=== PATIENT | male | born 1945 | race Caucasian/White ===

== ENCOUNTER → 2023-09-10 07:43 | Outpatient (REF) | payer MEDICARE, OTHER, SELFPAY ==
[2023-09-10 09:05] LABS: % Basophils 0.7 % (0-2); % Eosinophils 2.5 % (0-6); % Immature Granulocytes 0.3 % (0-0.5); % Lymphocytes 26.3 % (20.5-51.1); % Monocytes 8.7 % (1.7-9.3); % Neutrophils 61.5 % (42.2-75.2); Absolute Basophils 0.1 10^3/uL (0-0.2); Absolute Eosinophils 0.2 10^3/uL (0-0.7); Absolute Lymphocytes 1.8 10^3/uL (1.2-3.4); Absolute Monocytes 0.6 10^3/uL (0.1-0.6); Absolute Neutrophils 4.2 10^3/uL (1.4-6.5); Hematocrit 41.2 % (39.0-52.0); Hemoglobin 13.9 g/dL (13.0-18.0); Mean Corp Hgb Conc. 33.7 g/dL (33.0-37.0); Mean Corpuscular Hgb 30.2 pg (27.0-31.0); Mean Corpuscular Volume 89.6 fL (80.0-94.0); Mean Platelet Volume 9.9 fL (7.4-10.4); Nucleated Red Blood Cells % 0 % (-); Platelet Count 226 10^3/uL (130-400); Red Cell Dist. Width 14.7 % (11.5-14.5); White Blood Cell Count 6.8 10^3/uL (4.8-10.8)
[2023-09-10 09:31] LABS: ALT (SGPT) 23 U/L (0-50); AST (SGOT) 24 U/L (17-59); Albumin 4.5 g/dl (3.5-5.0); Alkaline Phosphatase 57 U/L (38-126); Blood Urea Nitrogen 18 mg/dl (9-20); Calcium 9.7 mg/dl (8.4-10.2); Carbon Dioxide 23 mmol/L (22-30); Chloride 105 mmol/L (98-107); Glucose 105 mg/dl (70-99); HDL Cholesterol 67 mg/dl; LDH 155 U/L (120-246); LDL Cholesterol, Calculated 26 mg/dl; Potassium 4.3 mmol/L (3.5-5.1); Sodium 134 mmol/L (135-145); Total Bilirubin 0.8 mg/dl (0.2-1.3); Total Cholesterol 117 mg/dl (50-199); Triglyceride 123 mg/dl (10-149); Very Low Density Lipoprotein 24 mg/dl (0-30); eGFR > 60.00
[2023-09-10 09:46] LABS: Vitamin D, 25-OH*** 44.2 ng/mL (30-80)
[2023-09-11 11:02] LABS: PSA Total 4.7 ng/mL (0.0-4.0)
== END ==
LOC: REG 07:43
PROVIDERS: ATTENDING PHYSICIAN Family Medicine
DX: E78.5 Hyperlipidemia, unspecified (principal); E55.9 Vitamin D deficiency, unspecified; R73.03 Prediabetes; R97.20 Elevated prostate specific antigen [PSA]
CPT/HCPCS: 36415; 80053; 80061; 82306; 83036; 83615; 84153; 84154; 85025

== ENCOUNTER → 2023-12-12 10:12 | Outpatient (REF) | payer MEDICARE, OTHER, SELFPAY | LOC: PAVMRI 10:12 | PROVIDERS: ATTENDING PHYSICIAN Orthopaedic Surgery; FAMILY PHYSICIAN Family Medicine | DX: M25.561 Pain in right knee (principal) | CPT/HCPCS: 73721 ==

== ENCOUNTER → 2024-02-26 09:19 | Outpatient (REF) | payer MEDICARE, OTHER, SELFPAY | LOC: REG 09:19 | PROVIDERS: ATTENDING PHYSICIAN Specialist; FAMILY PHYSICIAN Family Medicine | DX: R97.20 Elevated prostate specific antigen [PSA] (principal) | CPT/HCPCS: 36415; 84153; 84154 ==

== ENCOUNTER → 2024-09-05 10:24 | Outpatient (REF) | payer MEDICARE, OTHER, SELFPAY | LOC: REG 10:24 | PROVIDERS: ATTENDING PHYSICIAN Family Medicine | DX: Z20.9 Contact with and (suspected) exposure to unspecified communicable disease (principal) | CPT/HCPCS: 36415; 86765 ==

== ENCOUNTER → 2024-10-08 07:35 | Outpatient (REF) | payer MEDICARE, OTHER, SELFPAY | LOC: HWRCS 07:35 | PROVIDERS: ATTENDING PHYSICIAN Internal Medicine Cardiovascular Disease; FAMILY PHYSICIAN Family Medicine | DX: I25.10 Atherosclerotic heart disease of native coronary artery without angina pectoris (principal) | CPT/HCPCS: 78452; 93017; A9500 ==